=== PATIENT | female | born 1970 | race Caucasian/White ===

== ENCOUNTER 2018-09-21 11:49 | Outpatient (CLI) | payer OTHER ==
[2015-11-30 15:44] VITALS: BP 183/120
[2018-11-02 12:07] LABS: BASOPHILS % 0.4 % (0.0-1.5); NEUTROPHILS # 6.1 # k/uL (1.4-7.7)
== END 2018-09-21 11:51 ==
LOC: LAB 11:49
PROVIDERS: ATTEND Nurse Practitioner Family
DX: L03.119 Cellulitis of unspecified part of limb (principal)
CPT/HCPCS: 36415; 73630; 74176; 84550; 85025